=== PATIENT | male | born 1975 | race Caucasian/White ===

== ENCOUNTER → 2023-10-08 09:22 | Outpatient (BNVA) | payer SELFPAY | PROVIDERS: Visit Provider Physician Assistant Medical ==

== ENCOUNTER 2024-06-24 23:52 | Inpatient (IN) | payer MEDICAID, SELFPAY ==
--- NOTE | ~2024-06-24 | MR_ITS ---
EXAMINATION: MR WRIST WITHOUT CONTRAST, RIGHT CLINICAL INFORMATION: History of IVDU. Infection, history of remote scaphoid fracture. Evaluate for osteomyelitis. COMPARISON: Correlation made with CT wrist 06/25/2024, and plain films 06/25/2024. TECHNIQUE: MRI of the wrist was performed using routine sequences on a high-field scanner. The patient refused to complete the examination and contrast was not administered. Only a localizer sequence, coronal T1, and axial T1 sequences were able to be performed before the patient terminated the exam. FINDINGS: Essentially nondiagnostic exam, see above. Contrast was unable to be given patient noncompliance. Only coronal and axial T1 noncontrast sequences were obtained. The axial T1 images extremely motion degraded and essentially nondiagnostic. This was repeated with same result. This severely limits the sensitivity of the examination and renders it essentially nondiagnostic for determination of osteomyelitis. There is a nonunited mid waist scaphoid fracture, with diffusely hypointense T1 signal within the proximal fragment, consistent with AVN. There is fragmentation of the distal fragment cystic changes, marginal spurring and irregularity. There are likely posttraumatic arthritic changes in the STT joints. There is a T1 hypointense erosion involving the radial styloid process, with surrounding halo of T1 hypointense marrow signal, nonspecific. This could represent infection in the appropriate clinical setting. There are mild cystic changes in the volar aspect of the capitate, as well as the proximal pole. There is negative ulnar variance. No definite SLAC changes. There is degenerative arthritis, likely posttraumatic, of the radiocarpal joint. MR/MR wrist RT wo con IMPRESSION: 1. Essentially nondiagnostic examination as described above. Only motion degraded coronal T1 noncontrast and axial T1 noncontrast sequences were able to be obtained before the patient terminated the examination. 2. 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 The distal pole demonstrate mild fragmentation and irregularity with spurring. 3. There is a T1 hypointense subchondral cystic focus in the radial styloid, with mild surrounding halo of T1 hypointense marrow signal. This is nonspecific but could potentially represent infection. 4. 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 Electronically signed by: Hoang Louis MD 06/26/2024 08:45 AM EDT
--- NOTE | ~2024-06-24 | CT_ITS ---
CLINICAL HISTORY: ?IVDU infect. Hx of remote scaphoid fx Exam: CT of the right wrist with intravenous contrast. Comparison: Radiographs june 24, 2024. Findings: There is 5 mm of ulnar negative variance. No findings to suggest avascular necrosis of the lunate. Chronic fracture deformity of the scaphoid is identified. There is a diminutive and sclerotic appearance of the proximal scaphoid indicative of avascular necrosis. There is nonunion at the fracture line with several wall corticated bony fragments of the distal scaphoid. The largest bony fragment measures 12 x 9 mm in size. Other bony fragments are more diminutive. No aggressive periosteal reaction is identified. Moderate degenerative change of the STT joint and 1st carpometacarpal joint. No peripherally enhancing fluid collections are seen within the soft tissues to suggest abscess. There is hyperenhancement of the synovium along the radial aspect of the radiocarpal articulation with likely joint effusion. Alignment at the carpometacarpal joints is anatomic. Impression: 1. 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 2. No acute periosteal reaction or bony destructive change to suggest osteomyelitis. 3. Hyperenhancement of the synovium along the radial aspect of the radiocarpal articulation with likely joint effusion. Please note that MRI with intravenous contrast is considered the imaging modality of choice for the evaluation of septic arthritis and osteomyelitis. 4. No soft tissue abscess identified. This document has been electronically signed by: Pranay Fitch MD on 06/25/2024 06:08:44
--- NOTE | ~2024-06-24 | XR_ITS ---
CLINICAL HISTORY: swelling pain Three-view right wrist Comparison: None Findings: Sclerotic and fragmented appearance of the scaphoid suggestive of prior fracture healed in nonunion, possibly with avascular necrosis of the scaphoid proximal pole. Moderate degenerative changes at the radioscaphoid, triscaphe, and 1st carpometacarpal joints. Soft tissue swelling about the carpus. No dislocation. No acute fracture. IMPRESSION: 1. No acute findings. Posttraumatic changes of the scaphoid with secondary advanced degenerative changes. This document has been electronically signed by: John Marsh MD on 06/25/2024 00:52:33
--- NOTE | ~2024-06-24 | XR_ITS ---
CLINICAL HISTORY: swelling pain 3 view right hand Comparison: None Findings: Sclerotic and fragmented appearance of the scaphoid suggestive of prior fracture healed in nonunion, possibly with avascular necrosis of the scaphoid proximal pole. Moderate degenerative changes at the radioscaphoid, triscaphe, and 1st carpometacarpal joints. Soft tissue swelling about the carpus. No dislocation. No acute fracture. IMPRESSION: 1. No acute findings. Posttraumatic changes of the scaphoid with secondary advanced degenerative changes. This document has been electronically signed by: John Marsh MD on 06/25/2024 00:50:51
--- NOTE | ~2024-06-24 | US_ITS ---
EXAMINATION: Ultrasound nonvascular right wrist. CLINICAL INDICATION: Evaluate for septic arthritis. Significant dorsal and volar pain along the wrist. COMPARISON: Limited MRI right wrist 06/25/2024. TECHNIQUE: Limited ultrasound Imaging of right wrist and distal forearm was performed. FINDINGS: There is no anechoic fluid seen in the joint at this time. There is minimal fluid surrounding the dorsal superficial and deep extensor tendons, compressible essentially appears simple fluid. The tendons are grossly unremarkable. No abscess or soft tissue mass seen in and around the wrist joint or distal forearm. There is no drainable fluid or abscess seen. US/US Extremity Nonvas Comp JT RT IMPRESSION: No joint effusion. Minimal fluid surrounding the dorsal extensor tendons, not drainable fluid. The patient has AVN of scaphoid bone Results were conveyed to Dr. Lise Ferreira by phone at 8:54 AM. If patient has persistent pain in the right wrist pain a limited bone scan or a repeat MRI right wrist with sedation can be performed. Electronically signed by: Peterson Ballard MD 06/26/2024 10:08 AM EDT
[2024-06-25] VITALS (11 sets, daily range): BP systolic 108–142; BP diastolic 61–92; PULSE 59–95; RESP 16–20; TEMP 36.6–37.3; O2SAT 95–100; BMI 25.7; BMI 24.6
[2024-06-25] MEDS: oxyCODONE HCl Immed Release 5 MG TABLET PO (00:32)
[2024-06-25 01:01] LABS: Basophils Percent Auto 0.2 % (0-2); Eosinophils Percent Auto 0.1 % (0-4); Imm Gran Abs Auto 0.04 X10*3/uL (0.00-0.03); Imm Gran Pct Auto 0.3 % (0.0-0.4); MANUAL DIFF FLAG SCAN; Mean Platelet Volume 9.7 fL (9.4-12.4); PLT CLUMP 1; SCAN SMEAR FLAG 1
[2024-06-25 01:03] LABS: Hematocrit 38.1 % (42.0-52.0); Hemoglobin 13.5 g/dl (14.0-18.0); Lymphocytes Absolute Auto 1.8 X10*3/uL (1.2-4.9); Lymphocytes Percent Auto 13.5 % (20-40); Mean Corpuscular HGB Conc 35.4 g/dl (31.0-36.0); Mean Corpuscular Hemoglobin 31.2 pg (27.0-33.0); Monocytes Absolute Auto 1.4 X10*3/uL (0.1-1.2); Monocytes Percent Auto 10.5 % (2-11); Neutrophils Absolute Auto 10.3 x10*3/uL (2.0-8.3); Neutrophils Percent Auto 75.4 % (45-73); Red Blood Count 4.33 X10*6/uL (4.60-5.80); Red Cell Distribution Width 12.6 % (11.0-16.0)
[2024-06-25 01:04] LABS: Platelet Count 282 X10*3/uL (160-400); White Blood Count 13.7 X10*3/uL (4.8-10.8)
[2024-06-25 01:19] LABS: SLIDE REVIEW VERIFIED
--- NOTE | 2024-06-25 01:35 | ED_ITS ---
HPI - Extremity Problem General Chief complaint: Extremity Injury, Upper Stated complaint: THROBBING PAIN IN RT HAND Time Seen by Provider: 06/25/24 01:35 History of Present Illness ED Provider: Berkley VILLATORO Narrative: The patient is a 48-year-old male who presents with a complaint of acute severe right wrist pain that started at 22:30 earlier this evening. He says that he had been asleep in preparation for going to work for an overnight shift. 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 He says that he has a history of remote fracture of the right wrist but says he has had no a chronic problems with the wrist. He also says that he has a remote history of IV heroin use but has not used for several years. He says that he woke up with acute severe pain in the right wrist. He feels that there is swelling in the wrist. He says that the pain is relieved only by lifting his wrist above his head. He says any time he brings his wrist down the pain becomes unbearable. He says that even when he is holding his wrist above his head the pain is still severe and he has been sweaty because of the degree of pain. No fever, sweats, chills. He has never had an episode like this before. The patient later admitted that he has been using IV drugs recently and that in fact he injected IV drugs in a vein at the right wrist 2 days ago in the location of his severe pain Related Data Home Medications ?Medication ?Instructions ?Recorded ?Confirmed No Known Home Meds 06/25/24 06/25/24 Allergies Allergy/AdvReac Type Severity Reaction Status Date / Time No Known Allergies Allergy Verified 06/25/24 00:04 Review of Systems 2 Review of Systems: Yes all other systems are reviewed and are negative [facility] Past Medical History Medical History Polysubstance use disorder Social History Social History Alcohol intake: current Alcohol intake frequency: holidays/special occasions only Smoked in Last 30 Days: Yes Use of substances other than those prescribed or required for medical reasons: No Advance Directives: No Advance Directives Information Provided: Yes Do you have a plan to hurt others: No Plan Physical Exam 2 Vital Signs: Vital Signs: Last Vital Signs Temp 98.5 F 06/25/24 05:09 Pulse 72 06/25/24 08:10 Resp 16 06/25/24 08:10 BP 108/62 06/25/24 08:10 Pulse Ox 99 06/25/24 08:10 O2 Del Method Room Air 06/25/24 08:10 BMI result Body Mass Index 25.7 Const: Other: The patient is a 48-year-old male who was awake and alert and looks uncomfortable. He was holding his right arm so that his hand and wrist were above his head. He was diaphoretic. HEENT: Other: Face is symmetrical. The patient has multiple dental caries. Mucous membranes moist. Eyes: General: appearance normal, both eyes and all related structures Neck: Neck: Yes full ROM and Yes no lymphadenopathy Resp: Effort & Inspection: normal respiratory effort Auscultation: clear to auscultation bilaterally Cardio: Rate: regular rate Rhythm: regular rhythm Heart sounds: S1 normal heart sound present and S2 normal heart sound present GI: Other: Abdomen is soft and nontender Skin: Other: The patient's head was diaphoretic. The skin of the right wrist showed a small amount of possible swelling on the dorsum of the radial side of the wrist. The patient was quite tender in his region. No definite fluctuance. Neuro: Other: The patient is awake and alert with a normal mental status. Cranial nerves are grossly intact. He seems to have symmetrical tone in his extremities. He seems grossly neurologically intact. Extrem: Other: No peripheral edema Medications Administered Generic Name Dose Route Start Last Admin Trade Name Freq PRN Reason Stop Dose Admin Morphine Sulfate 4 mg 06/25/24 04:36 06/25/24 07:22 Morphine Sulfate 4 Mg/Ml Cartridge IVPUSH 4 mg Q4H PRN Administration Pain, Severe (Pain Scale 7-10) Protocol Sodium Chloride 3 ml 06/25/24 08:00 06/25/24 07:24 0.9 % Sodium Chloride Flush 3 Ml Syringe IVFLUSH 3 ml QSHIFT MARK Administration Discontinued Medications Generic Name Dose Route Start Last Admin Trade Name Freq PRN Reason Stop Dose Admin Diazepam 5 mg 06/25/24 04:57 06/25/24 05:12 Diazepam 10 Mg/2 Ml Cartridge IVPUSH 06/25/24 04:58 5 mg STAT STA Administration Hydromorphone HCl 0.5 mg 06/25/24 03:42 06/25/24 03:55 Hydromorphone Hcl 0.5 Mg/0.5 Ml Syringe IVPUSH 06/25/24 03:43 0.5 mg ONCE ONE Administration Protocol Hydromorphone HCl 1 mg 06/25/24 04:25 06/25/24 04:31 Hydromorphone Hcl 1 Mg/Ml Syringe IVPUSH 06/25/24 04:26 1 mg ONCE ONE Administration Protocol Hydromorphone HCl 1 mg 06/25/24 04:55 06/25/24 05:19 Hydromorphone Hcl 1 Mg/Ml Syringe IVPUSH 06/25/24 04:56 Not Given ONCE ONE Protocol Hydromorphone HCl 1 mg 06/25/24 07:49 06/25/24 08:07 Hydromorphone Hcl 1 Mg/Ml Syringe IVPUSH 06/25/24 07:50 1 mg ONCE ONE Administration Protocol Piperacillin Sod/Tazobactam 100 mls @ 200 mls/hr 06/25/24 04:14 06/25/24 05:57 Sod 4.5 gm/ Sodium Chloride IV 06/25/24 04:43 Infused ONCE ONE Infusion Vancomycin HCl 2,000 mg in 500 mls @ 250 mls/hr 06/25/24 04:15 06/25/24 04:57 Vancomycin/Ns IV 06/25/24 06:14 250 mls/hr ONCE ONE Administration Lactated Ringer's 1,000 mls @ 999 mls/hr 06/25/24 05:00 06/25/24 08:10 Lr IV 06/25/24 06:00 Infused .Q1H1M MARK Infusion Iohexol 85 ml 06/25/24 05:38 06/25/24 05:40 Iohexol 350 Mg/Ml 100 Ml Infus..Btl IV 06/25/24 05:39 85 ml ONCE ONE Administration Ketorolac Tromethamine 10 mg 06/25/24 03:42 06/25/24 03:55 Ketorolac Tromethamine 15 Mg/Ml Vial IVPUSH 06/25/24 03:43 10 mg ONCE ONE Administration Morphine Sulfate 4 mg 06/25/24 01:56 05/07/25 03:07 Morphine Sulfate 4 Mg/Ml Cartridge IVPUSH 06/25/24 01:57 4 mg ONCE ONE Administration Protocol Oxycodone HCl 5 mg 06/25/24 00:18 06/25/24 00:32 Oxycodone Hcl Immed Release 5 Mg Tablet PO 06/25/24 00:19 5 mg ONCE ONE Administration Medical Decision Making Medical Decision Making [facility] Narrative: The patient is a 48-year-old male who presented with a strange presentation of acute wrist pain. He was also diaphoretic. He was holding his right hand above his head in a position of comfort. At 1st the patient admitted to being a remote IV drug user but denied recent IV drug use. Later he admitted to having used IV drugs recently including injecting himself in the right wrist near the site of his pain. On exam there is no significant erythema to the skin overlying the area of pain. There is a small area of soft tissue swelling uncertain significance. I am not able to put the right wrist through a very reassuring range of motion. The patient has a white count of 13.7 with 75.4% neutrophils. Other inflammatory markers are not markedly abnormal. Given the history of IV drug use I would be concerned about an infectious process as the cause of the patient's presentation to the emergency room this morning. The patient was therefore started on Zosyn and vancomycin. We will obtain a CT scan of the wrist. The patient will be admitted to the hospitalist service with a an orthopedic consult. I contacted the on-call orthopedic physician ward assistant. Lab Data 06/25/24 00:56 06/25/24 03:02 Labs: Lab Results 06/25/24 06/25/24 06/25/24 Range/Units 00:56 03:01 03:02 WBC 13.7 H (4.8-10.8) X10*3/uL RBC 4.33 L (4.60-5.80) X10*6/uL Hgb 13.5 L (14.0-18.0) g/dl Hct 38.1 L (42.0-52.0) % MCV 88.0 (80.0-98.0) fL MCH 31.2 (27.0-33.0) pg MCHC 35.4 (31.0-36.0) g/dl RDW 12.6 (11.0-16.0) % Plt Count 282 (160-400) X10*3/uL MPV 9.7 (9.4-12.4) fL Immature Gran % (Auto) 0.3 (0.0-0.4) % Neut % (Auto) 75.4 H (45-73) % Lymph % (Auto) 13.5 L (20-40) % Benzie % (Auto) 10.5 (2-11) % Eos % (Auto) 0.1 (0-4) % Baso % (Auto) 0.2 (0-2) % Lymph # (Auto) 1.8 (1.2-4.9) X10*3/uL Benzie # (Auto) 1.4 H (0.1-1.2) X10*3/uL Eos # (Auto) 0.0 (0.0-0.4) X10*3/uL Baso # (Auto) 0.0 (0.0-0.2) X10*3/uL Abs Immat Gran (auto) 0.04 H (0.00-0.03) X10*3/uL Absolute Neuts (auto) 10.3 H (2.0-8.3) x10*3/uL Absolute Nucleated RBC 0.000 (0.0-0.012) X10*3/uL Nucleated RBC % (auto) 0.0 (0.0-0.2) /100WBC Smear Tech's Comments VERIFIED ESR 17 H (0-15) MM/HR Sodium 136 (135-145) mmol/L Potassium 3.8 (3.3-5.1) mmol/L Chloride 101 (96-108) mmol/L Carbon Dioxide 23 (22-29) mmol/L Anion Gap 16 (12-20) BUN 11 (9-16) mg/dL Creatinine 0.70 (0.5-1.4) mg/dL Estim Creat Clear Calc 153.3 Estimated GFR > 60 Random Glucose 102 (60-115) mg/dL Lactic Acid 1.4 (0.5-2.0) mmol/L Uric Acid 6.1 (3.4-7.0) mg/dL Calcium 9.5 (8.4-10.2) mg/dL Magnesium 1.8 (1.6-2.6) mg/dL Total Bilirubin 0.7 (0.0-1.0) mg/dL Direct Bilirubin 0.3 (0.0-0.5) mg/dL AST 37 (5-37) U/L ALT 32 (0-40) U/L Alkaline Phosphatase 78 (39-117) U/L Total Creatine Kinase 136 (38-174) U/L C-Reactive Protein 1.12 H (< or = 0.50) mg/dL Total Protein 8.1 H (6.5-8.0) g/dL Albumin 4.6 (3.5-5.0) g/dL Procalcitonin 0.05 ng/mL Urine Color Dark Yellow Urine Appearance Clear Urine pH 5.5 (5.0-9.0) Ur Specific Cushman 1.025 (1.005-1.025) Urine Protein Negative (Neg-Trace) mg/dL Urine Glucose (UA) Negative (Negative) mg/dL Urine Ketones 15 (Negative) mg/dL Urine Blood Negative (Negative) Urine Nitrite Negative (Negative) Ur Leukocyte Esterase Negative (Negative) Urine Opiates Screen POSITIVE H (Not Detect) Ur Buprenorphine Scrn Not Detected (Not Detect) ng/mL Ur Oxycodone Screen Positive H (Not Detect) ng/mL Urine Methadone Screen Not Detected (Not Detect) ng/mL Urine Fentanyl Screen POSITIVE H (Not Detect) Ur Barbiturates Screen Not Detected (Not Detect) Ur Phencyclidine Scrn Not Detected (Not Detect) Ur Amphetamines Screen Not Detected (Not Detect) U Benzodiazepines Scrn Not Detected (Not Detect) Urine Cocaine Screen Not Detected (Not Detect) U Marijuana (THC) Screen Not Detected (Not Detect) Discharge Plan Discharge Clinical Impression: Infection of left wrist, Active intravenous drug use Patient Disposition: Admitted As Inpatient
--- NOTE | 2024-06-25 01:52 | ECG_ITS ---
Test Reason : PAIN Blood Pressure : */* mmHG Vent. Rate : 74 BPM Atrial Rate : 74 BPM P-R Int : 168 ms QRS Dur : 84 ms QT Int : 404 ms P-R-T Axes : 47 68 50 degrees QTcB Int : 448 ms Normal sinus rhythm with sinus arrhythmia Normal ECG No previous ECGs available Referred By: Scott Gooden Electronically Signed By: SHARIFA CAMPBELL
[2024-06-25] MEDS: Morphine Sulfate 4 MG/ML CARTRIDGE IVPUSH ×3 (03:07→19:31)
[2024-06-25 03:18] LABS: Appearance Urine Clear; Color Urine Dark Yellow; Glucose Urine UA Negative (Negative); Leukocyte Esterase Urine Negative (Negative); Nitrite Urine Negative (Negative); PH 5.5 (5.0-9.0); Specific Gravity - Urine 1.025 (1.005-1.025); Urine Blood Negative (Negative); Urine Ketones 15 mg/dL (Negative); Urine Protein Negative (Neg-Trace)
[2024-06-25 03:27] LABS: Lactic Acid 1.4 mmol/L (0.5-2.0)
[2024-06-25 03:29] LABS: Amphetamine Screen Urine Not Detected (Not Detect); Barbiturates, Urine Not Detected (Not Detect); Benzodiazepines Screen Urine Not Detected (Not Detect); Buprenorphine Scr Not Detected (Not Detect); Cannabinoid Screen Urine Not Detected (Not Detect); Cocaine Screen Urine Not Detected (Not Detect); Fentanyl, urine POSITIVE (Not Detect); Methadone Screen, Urine Not Detected (Not Detect); Opiate Screen Urine POSITIVE (Not Detect); Oxycodone Screen Urine Positive (Not Detect); Phencyclidine Screen Urine Not Detected (Not Detect)
[2024-06-25 03:31] LABS: Alanine Aminotransferase 32 U/L (0-40); Albumin Level 4.6 g/dL (3.5-5.0); Anion Gap 16 (12-20); Aspartate Amino Transferase 37 U/L (5-37); Bilirubin Direct 0.3 mg/dL (0.0-0.5); Bilirubin Total 0.7 mg/dL (0.0-1.0); Blood Urea Nitrogen 11 mg/dL (9-16); C Reactive Protein 1.12 mg/dL (< or = 0.50); Calcium 9.5 mg/dL (8.4-10.2); Carbon Dioxide 23 mmol/L (22-29); Chloride 101 mmol/L (96-108); Creatinine Clr Calc Pharmacy 153.3; Estimated Glomerular Filt Rate > 60; Glucose Random 102 mg/dL (60-115); Magnesium 1.8 mg/dL (1.6-2.6); Potassium 3.8 mmol/L (3.3-5.1); Sodium 136 mmol/L (135-145); Total Protein 8.1 g/dL (6.5-8.0); Uric Acid 6.1 mg/dL (3.4-7.0)
[2024-06-25 03:44] LABS: Erythrocyte Sedimentation Rate 17 MM/HR (0-15)
[2024-06-25 03:52] LABS: Procalcitonin 0.05 ng/mL
[2024-06-25] MEDS: Ketorolac Tromethamine 15 MG/ML VIAL 10 MG IVPUSH (03:55)
[2024-06-25] MEDS: HYDROmorphone HCl 0.5 MG/0.5 ML SYRINGE IVPUSH (03:55)
[2024-06-25 04:17] LABS: Alkaline Phosphatase 78 U/L (39-117)
[2024-06-25] MEDS: HYDROmorphone HCl 1 MG/ML SYRINGE IVPUSH ×6 (04:31→21:43)
--- NOTE | 2024-06-25 04:38 | PM.IMHP ---
History of Present Illness Date of Service: 06/25/24 Chief Complaint: Wrist pain This has a 48-year-old male with pertinent history of IV opioid use disorder who presents to the emergency department for evaluation of right wrist pain. Patient initially stated that he had a cut about a week ago from working on a car. Then later admitted that he injected IV heroin at the site of pain and swelling. Patient states he woke up with throbbing right wrist pain and noticed redness, swelling. The pain has been persistent and without any relieving factors. Does endorse a remote fracture of the right wrist but states that until 1 day prior to presentation he had no problems with his wrist. He is unable to move his wrist on the day of presentation due to pain and swelling. Denies fever, chills, chest pain, palpitations, abdominal pain, changes in urinary or bowel habits. In the emergency department, UDS positive for fentanyl. Leukocytosis 13.7 and imaging with avascular necrosis of scaphoid. Review of Systems Constitutional: Constitutional: Reports no additional constitutional complaints Cardiovascular: Cardiovascular: Reports no additional cardiovascular complaints Respiratory: Respiratory: Reports no additional respiratory complaints Gastrointestinal: Gastrointestinal: Reports no additional gastrointestinal complaints Genitourinary: Genitourinary: Reports no additional male genitourinary complaints Musculoskeletal: Musculoskeletal: Reports arthralgias and Reports joint swelling [facility] Medical History Polysubstance use disorder Pertinent family history: No family history of early CAD Social History Alcohol intake: current Alcohol intake frequency: holidays/special occasions only Smoked in Last 30 Days: Yes Use of substances other than those prescribed or required for medical reasons: No Advance Directives: No Advance Directives Information Provided: Yes Do you have a plan to hurt others: No Plan Meds Allergies Allergy/AdvReac Type Severity Reaction Status Date / Time No Known Allergies Allergy Verified 06/25/24 00:04 Active Medications: Current Medications Piperacillin Sod/Tazobactam (Sod 4.5 gm/ Sodium Chloride) 100 mls @ 200 mls/hr IV ONCE ONE Stop: 06/25/24 04:43 Vancomycin HCl (Vancomycin/Ns) 2,000 mg in 500 mls @ 250 mls/hr IV ONCE ONE Stop: 06/25/24 06:14 Pharmacy Consult (Consult Rx Vancomycin Dosing) 1 each MISCELLANE DAILY PRN PRN Reason: Consult order Physical Exam Vital Signs and Narrative: Vital Signs: Last Vital Signs Temp 97.8 F 06/25/24 00:00 Pulse 87 06/25/24 00:00 Resp 18 06/25/24 04:31 BP 141/78 H 06/25/24 00:00 Pulse Ox 99 06/25/24 00:00 O2 Del Method Room Air 06/25/24 00:00 BMI result Body Mass Index 25.7 Middle-aged male lying in bed in no distress Neck supple, no JVD Regular rate and rhythm, S1-S2 heard Regular breath sounds bilaterally, no wheezing or crackles appreciated Abdomen soft nontender, no guarding, no rigidity Patient is awake, alert and oriented to self, place, time and person ; no focal motor deficit Psych: Normal mood Right wrist with swelling, erythema, tenderness near scaphoid bone ; limited range of motion due to pain Results Labs 06/25/24 00:56 06/25/24 03:02 Labs: Laboratory Results - last 24 hr 06/25/24 06/25/24 06/25/24 00:56 03:01 03:02 MCV 88.0 MCH 31.2 MCHC 35.4 RDW 12.6 Plt Count 282 MPV 9.7 Immature Gran % (Auto) 0.3 Neut % (Auto) 75.4 H Lymph % (Auto) 13.5 L [place] % (Auto) 10.5 Eos % (Auto) 0.1 Baso % (Auto) 0.2 Lymph # (Auto) 1.8 [place] # (Auto) 1.4 H Eos # (Auto) 0.0 Baso # (Auto) 0.0 Abs Immat Gran (auto) 0.04 H Absolute Neuts (auto) 10.3 H Absolute Nucleated RBC 0.000 Nucleated RBC % (auto) 0.0 Smear Tech's Comments VERIFIED ESR 17 H Anion Gap 16 Estim Creat Clear Calc 153.3 Estimated GFR > 60 Random Glucose 102 Lactic Acid 1.4 Uric Acid 6.1 Calcium 9.5 Magnesium 1.8 Total Bilirubin 0.7 Direct Bilirubin 0.3 AST 37 ALT 32 Alkaline Phosphatase 78 Total Creatine Kinase 136 C-Reactive Protein 1.12 H Total Protein 8.1 H Albumin 4.6 Procalcitonin 0.05 Urine Color Dark Yellow Urine Appearance Clear Urine pH 5.5 Ur Specific Stanton 1.025 Urine Protein Negative Urine Glucose (UA) Negative Urine Ketones 15 Urine Blood Negative Urine Nitrite Negative Ur Leukocyte Esterase Negative Urine Opiates Screen POSITIVE H Ur Buprenorphine Scrn Not Detected Ur Oxycodone Screen Positive H Urine Methadone Screen Not Detected Urine Fentanyl Screen POSITIVE H Ur Barbiturates Screen Not Detected Ur Phencyclidine Scrn Not Detected Ur Amphetamines Screen Not Detected U Benzodiazepines Scrn Not Detected Urine Cocaine Screen Not Detected U Marijuana (THC) Screen Not Detected Assessment and Plan (1) Avascular necrosis of scaphoid: Status: Acute Plan This has a 48-year-old male with pertinent history of IV opioid use disorder who presents to the emergency department for evaluation of right wrist pain. #. Avascular necrosis of scaphoid: Will admit patient for intractable wrist pain. Consulted Orthopedic surgery, appreciate assistance. Does have leukocytosis. Initiating empiric IV vancomycin in a patient with IV drug use. Imaging with hyperenhancement of synovium with joint effusion. Obtaining MRI to rule out septic arthritis and osteomyelitis. #. Polysubstance IV drug use disorder: Monitor for withdrawal. Consulting Addiction Team DVT prophylaxis: Hold Lovenox until orthopedic evaluation Full code Admit as inpatient and will require two night minimum hospital stay for management of intractable pain and avascular necrosis, IV antibiotics (as above), which is not possible in a lesser acute setting. Orthopedic surgery consult pending Quality Stroke Does the patient have a stroke diagnosis?: No VTE Prior VTE?: No VTE Risk Level:: Medical - low VTE Device Contraindication: Treatment Not Indicated VTE Drug Contraindication: Treatment Not Indicated
[2024-06-25] MEDS: vancomycin/NS 2,000 MG/500 ML PLAST..BAG 250 MG IV (04:57)
[2024-06-25] MEDS: Piperacillin Sodium/Tazobactam 4.5 GM in 0.9 % Sodium Chloride 100 ML IV (04:57)
[2024-06-25] MEDS: diazePAM 10 MG/2 ML CARTRIDGE 5 MG IVPUSH ×2 (05:12→19:46)
[2024-06-25] MEDS: Lactated Ringers 1,000 ML 999 ML IV (05:13)
[2024-06-25] MEDS: iohexoL 350 MG/ML 100 ML INFUS..BTL 85 ML IV (05:40)
--- NOTE | 2024-06-25 06:05 | PC.NURSE ---
For admission documentation: PT MARYBeau from home with complaints of right wrist swelling. Initially?pt stated he sustained a cut while working?on a car 1 week ago which healed normally, but then today he woke up in 10/10 throbbing pain. However after attempting to draw labs pt noted hx of IVDU. WEBB was ordered and pt was?+ for fentanyl? and opiates or admitted to using heroin via IV, and the injection site was near the swollen area. WBC- 13.7 Ultrasound guided line placed in pt L ARM. PT a/ox4, independent and can make needs known.?
--- NOTE | 2024-06-25 07:07 | PC.NURSE ---
pt reminded multiple times to not bend is arm as it is causing a delay in antibiotic infusion and Fluids.
[2024-06-25] MEDS: 0.9 % Sodium Chloride Flush 3 ML SYRINGE IVFLUSH ×3 (07:24→19:46)
--- NOTE | 2024-06-25 07:49 | PC.NURSE ---
Pt is alert and oriented. States pain 9/10 to right wrist and keeping elevated as throbbing worsens with arm dependent. Pt given PRN Morphine as charted. VSS. Ate a small amount of breakfast. Aware of plan to admit. U/S guided IV to left arm flushing without difficulty, no redness to site. Vanco still infusing d/t arm bending, positioned on pillow and pt made aware to keep arm straight. Right wrist with some swelling noted. +CMS.
--- NOTE | 2024-06-25 07:52 | PHA.PROG ---
Admission Date/Time: June 25, 2024 04:33 Indication: bone and joint Weight in k.718 kg Adjusted body weight in Kg: [place] body weight in Kg: Obesity Dosing Indication % IBW: Serum Creatinine - Last 168 Hours 06/25/24 03:02 Creatinine 0.70 Estimated CrCl and GFR - Last 168 Hours 06/25/24 03:02 Estim Creat Clear Calc 153.3 Estimated GFR > 60 Vancomycin Loading Dose: 2000mg x 1 Current Vancomycin Dosing Regimen: 1250mg Q12H Vancomycin Monitoring using AUC goal of 400 - 600 range with trough as surrogate marker: 462 mg/L Date and Time for next Vancomycin Level to be drawn: 06/26 @1500 Pharmacist Comments on Vancomycin Plan: predicted trough of 13.8 mg/L Vancomycin dosing will take advantage of [employer]Plan as a clinical decision support tool that uses Bayesian modeling to calculate individual patient's pharmacokinetic parameters and forecast the patient's drug concentration time course with the target goal AUC 24 range of 400 - 600 mg/L/hr.
--- NOTE | 2024-06-25 07:57 | PC.NURSE ---
MRI screening form completed/faxed
--- NOTE | 2024-06-25 07:57 | PC.NURSE ---
Pt reports no pain relief s/p Morphine, called ED provider in room, although admitted. Order for Dilaudid 1mg ordered by Dr Gooden, Dr Esquivel made aware and okay to give at this time
--- NOTE | 2024-06-25 08:11 | PC.NURSE ---
Ortho at bedside Dilaudid given
--- NOTE | 2024-06-25 08:26 | PHA.MEDREC ---
Pharmacy Consult ? Medication Reconciliation Pharmacy has completed the medication reconciliation. Spoke with patient, confirmed he is on no medications.
--- NOTE | 2024-06-25 08:43 | PM.CNOR ---
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 Today, the patient reports that his wrist is very swollen, but denies any redness or heat Denies discharge Denies numbness or tingling No other acute complaints or concerns Review of Systems Review of Systems: Yes all other systems are reviewed and are negative PMFSH Past Medical History Medical History Polysubstance use disorder Social History Social History Alcohol intake: current Alcohol intake frequency: holidays/special occasions only Smoked in Last 30 Days: Yes Use of substances other than those prescribed or required for medical reasons: No Advance Directives: No Advance Directives Information Provided: Yes Do you have a plan to hurt others: No Plan Meds Allergies Allergy/AdvReac Type Severity Reaction Status Date / Time No Known Allergies Allergy Verified 06/25/24 00:04 Active Medications: Current Medications Acetaminophen (Acetaminophen 325 Mg Tablet) 650 mg PO Q6H PRN PRN Reason: Pain, Mild 1-3,fever,headache Calcium Carbonate (Calcium Carbonate 750 Mg Tab.Chew) 750 mg PO Q4H PRN PRN Reason: Heartburn Vancomycin HCl 1,250 mg/ (Sodium Chloride) 250 mls @ 166.667 mls/hr IV Q12H MARK Magnesium Hydroxide (Milk Of Magnesia 30 Ml Oral.Susp) 30 ml PO DAILY PRN PRN Reason: Constipation Melatonin (Melatonin 3 Mg Tablet) 6 mg PO BEDTIME PRN PRN Reason: Insomnia Morphine Sulfate (Morphine Sulfate 4 Mg/Ml Cartridge) 4 mg IVPUSH Q4H PRN; Protocol PRN Reason: Pain, Severe (Pain Scale 7-10) Last Admin: 06/25/24 07:22 Dose: 4 mg Ondansetron HCl (Ondansetron Hcl 4 Mg/2 Ml Vial) 4 mg IVPUSH Q8H PRN PRN Reason: Nausea and Vomiting Pharmacy Consult (Consult Rx Vancomycin Dosing) 1 each MISCELLANE DAILY PRN PRN Reason: Consult order Sodium Chloride (0.9 % Sodium Chloride Flush 3 Ml Syringe) 3 ml IVFLUSH QSHIFT [facility] Last Admin: 06/25/24 07:24 Dose: 3 ml Home Medications ?Medication ?Instructions ?Recorded ?Confirmed ?Last Taken ?Type No Known Home Meds 06/25/24 06/25/24 Unknown History Physical Exam Vital Signs: Vital Signs: Last Vital Signs Temp 98.6 F 06/25/24 08:28 Pulse 72 06/25/24 08:10 Resp 16 06/25/24 08:10 BP 108/62 06/25/24 08:10 Pulse Ox 99 06/25/24 08:10 O2 Del Method Room Air 06/25/24 08:10 BMI result Body Mass Index 25.7 Extrem: Other: Patient is alert, oriented, and in no acute distress. Neuro: Normal sensation of the tips of all digits of the right hand at this time Vascular: Cap refill brisk Pain: Significant tenderness to palpation about the entire right wrist Very significant pain with axial loading of the right wrist ROM: Patient is able to get close to making a closed fist with the right hand All range of motion of the right wrist extremely painful Skin: No lacerations or abrasions. General: There is significant edema over the 1st dorsal compartment and anatomical snuffbox of the right wrist No ecchymosis, erythema, or other evidence of infection. Psych: Appears grossly normal Affect normal Attitude cooperative Results Labs 06/25/24 00:56 06/25/24 03:02 Labs: Abnormal lab results 06/25/24 06/25/24 06/25/24 Range/Units 00:56 03:01 03:02 WBC 13.7 H (4.8-10.8) X10*3/uL RBC 4.33 L (4.60-5.80) X10*6/uL Hgb 13.5 L (14.0-18.0) g/dl Hct 38.1 L (42.0-52.0) % Neut % (Auto) 75.4 H (45-73) % Lymph % (Auto) 13.5 L (20-40) % [place] # (Auto) 1.4 H (0.1-1.2) X10*3/uL Abs Immat Gran (auto) 0.04 H (0.00-0.03) X10*3/uL Absolute Neuts (auto) 10.3 H (2.0-8.3) x10*3/uL ESR 17 H (0-15) MM/HR C-Reactive Protein 1.12 H (< or = 0.50) mg/dL Total Protein 8.1 H (6.5-8.0) g/dL Urine Opiates Screen POSITIVE H (Not Detect) Ur Oxycodone Screen Positive H (Not Detect) ng/mL Urine Fentanyl Screen POSITIVE H (Not Detect) H & H 06/25/24 Range/Units 00:56 Hgb 13.5 L (14.0-18.0) g/dl Hct 38.1 L (42.0-52.0) % All other labs normal. Diagnostic results Wrist/Hand x-ray: report reviewed and image reviewed Wrist/Hand CT: report reviewed and image reviewed Assessment and Plan (1) Avascular necrosis of scaphoid: Status: Acute (2) Active intravenous drug use: Status: Acute Plan 1. Acute onset severe right wrist pain 2. 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 I discussed both operative and nonoperative treatment options. The patient would like to proceed with surgery. The risks and benefits of operative treatment were discussed with the patient and the patient wishes to proceed with surgery. These risks include, but are not limited to, risk of damage to blood vessels, nerves, tendons, infection, recurrence, incomplete relief of preoperative symptoms, persistent pain, possible need for further surgery, and the risks associated with regional blocks and/or anesthesia. Tentative Plan is to take the patient to the operating room at some point tomorrow, 06/26/2024 for the following procedures: 1. I and D of right wrist Continue pain management and all other recommendations per Medicine Orthopedics will continue to follow Procedures Date of Service Date of Service: 06/25/24
--- NOTE | 2024-06-25 08:53 | PC.NURSE ---
Pt initially stating no relief s/p Dilaudid, now pt given cool pack and assisted to lower arm and positioned on pillow. Eyes closed at this time, breathing even and unlabored.
--- NOTE | 2024-06-25 10:28 | HO.ADDICT_ITS ---
History of Present Illness Date of Service: 06/25/2024 Chief Complaint: wrist pain Reason for Consult: history of OUD Sources of Information: patient interviewed and chart reviewed HPI Narrative: Patient is a 48 year old male medically admitted to [facility] with avascular necrosis of the scaphoid. Consult requested as patient reported recent IVDU. Patient seen in room 18 of main ED. He is awake, alert, pleasant and engaged in interview. He reports recent recurrence of use after 6 years in sustained remission from opiate use He states he used on 2 separate occasions, most recently being 2 days ago. When asked about withdrawal, he replied, I have only used 2 times, I'm not going to be sick He reports pain in his wrist, otherwise denies nausea, chills, anxiety, etc. No sx noted during interview. 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 Highest dose 70mg, tapered off 6 years ago. Denies any history of overdose Denies any alcohol, cocaine or benzo use Reviewed recovery supports--he states he attends meetings and has a sponsor that he is close with He identifies his job as a strong recovery support. Discussed IVDU--he reports using new syringes both times and cleaning the area well. Does not wish to discuss what led to recent use. Review of Systems Constitutional: Reports as per HPI and Reports no additional constitutional complaints Diagnostics Vital Signs (24Hr): Vital Signs - 24 hr 06/25/24 00:00 06/25/24 03:07 06/25/24 04:31 Temperature 97.8 F Pulse Rate 87 Respiratory Rate 18 18 18 Blood Pressure 141/78 H Pulse Oximetry 99 Oxygen Delivery Method Room Air 06/25/24 05:09 06/25/24 08:10 06/25/24 08:28 Temperature 98.5 F 98.6 F Pulse Rate 69 72 Respiratory Rate 18 16 Blood Pressure 111/61 108/62 Pulse Oximetry 98 99 Oxygen Delivery Method Room Air Room Air BMI result Body Mass Index 25.7 Labs 06/25/24 00:56 06/25/24 03:02 Labs: Laboratory Results - last 48 hr 06/25/24 06/25/24 06/25/24 00:56 03:01 03:02 WBC 13.7 H RBC 4.33 L Hgb 13.5 L Hct 38.1 L MCV 88.0 MCH 31.2 MCHC 35.4 RDW 12.6 Plt Count 282 MPV 9.7 Immature Gran % (Auto) 0.3 Neut % (Auto) 75.4 H Lymph % (Auto) 13.5 L [place] % (Auto) 10.5 Eos % (Auto) 0.1 Baso % (Auto) 0.2 Lymph # (Auto) 1.8 [place] # (Auto) 1.4 H Eos # (Auto) 0.0 Baso # (Auto) 0.0 Abs Immat Gran (auto) 0.04 H Absolute Neuts (auto) 10.3 H Absolute Nucleated RBC 0.000 Nucleated RBC % (auto) 0.0 Smear Tech's Comments VERIFIED ESR 17 H Sodium 136 Potassium 3.8 Chloride 101 Carbon Dioxide 23 Anion Gap 16 BUN 11 Creatinine 0.70 Estim Creat Clear Calc 153.3 Estimated GFR > 60 Random Glucose 102 Lactic Acid 1.4 Uric Acid 6.1 Calcium 9.5 Magnesium 1.8 Total Bilirubin 0.7 Direct Bilirubin 0.3 AST 37 ALT 32 Alkaline Phosphatase 78 Total Creatine Kinase 136 C-Reactive Protein 1.12 H Total Protein 8.1 H Albumin 4.6 Procalcitonin 0.05 Urine Color Dark Yellow Urine Appearance Clear Urine pH 5.5 Ur Specific [place] 1.025 Urine Protein Negative Urine Glucose (UA) Negative Urine Ketones 15 Urine Blood Negative Urine Nitrite Negative Ur Leukocyte Esterase Negative Urine Opiates Screen POSITIVE H Ur Buprenorphine Scrn Not Detected Ur Oxycodone Screen Positive H Urine Methadone Screen Not Detected Urine Fentanyl Screen POSITIVE H Ur Barbiturates Screen Not Detected Ur Phencyclidine Scrn Not Detected Ur Amphetamines Screen Not Detected U Benzodiazepines Scrn Not Detected Urine Cocaine Screen Not Detected U Marijuana (THC) Screen Not Detected Mental Status Exam Mental Status Exam Level of Consciousness: Awake, Appropriate and Alert Patient Behavior: Appropriate and Guarded Affect Description: Calm Speech Pattern: Clear Thought Process: Intact Thought Content: positive for Intact Judgement: Good Medications Medications Current Medications Acetaminophen (Acetaminophen 325 Mg Tablet) 650 mg PO Q6H PRN PRN Reason: Pain, Mild 1-3,fever,headache Calcium Carbonate (Calcium Carbonate 750 Mg Tab.Chew) 750 mg PO Q4H PRN PRN Reason: Heartburn Vancomycin HCl 1,250 mg/ (Sodium Chloride) 250 mls @ 166.667 mls/hr IV Q12H MARK Magnesium Hydroxide (Milk Of Magnesia 30 Ml Oral.Susp) 30 ml PO DAILY PRN PRN Reason: Constipation Melatonin (Melatonin 3 Mg Tablet) 6 mg PO BEDTIME PRN PRN Reason: Insomnia Morphine Sulfate (Morphine Sulfate 4 Mg/Ml Cartridge) 4 mg IVPUSH Q4H PRN; Protocol PRN Reason: Pain, Severe (Pain Scale 7-10) Last Admin: 06/25/24 07:22 Dose: 4 mg Ondansetron HCl (Ondansetron Hcl 4 Mg/2 Ml Vial) 4 mg IVPUSH Q8H PRN PRN Reason: Nausea and Vomiting Pharmacy Consult (Consult Rx Vancomycin Dosing) 1 each MISCELLANE DAILY PRN PRN Reason: Consult order Sodium Chloride (0.9 % Sodium Chloride Flush 3 Ml Syringe) 3 ml IVFLUSH QSHIFT MARK Last Admin: 06/25/24 07:24 Dose: 3 ml Allergies Allergies Allergy/AdvReac Type Severity Reaction Status Date / Time No Known Allergies Allergy Verified 06/25/24 00:04 Assessment & Plan Assessment & Plan (1) Opioid use: Status: Acute Code(s): F11.90 - Opioid use, unspecified, uncomplicated Assessment and Plan: * denies any withdrawal sx currently --denies any development of tolerance * Patient declines intervention, MOUD, or appt for tx realted to OUD at this time * Take home narcan at discharge * Encouraged patient to inform RN if sx develop or if he wishes to be seen by [facility] again during this admission * Please reconsult if needed or if patient requests to be seen Total time managing care of this patient today __35__ minutes. [facility] Past Medical History Medical History Polysubstance use disorder Social History Social History Alcohol intake: current Alcohol intake frequency: holidays/special occasions only Smoked in Last 30 Days: Yes Use of substances other than those prescribed or required for medical reasons: No Advance Directives: No Advance Directives Information Provided: Yes Do you have a plan to hurt others: No Plan service: No
--- NOTE | 2024-06-25 10:51 | MHC.CM.PN ---
Pt. lives alone, he does not have a PCP, and he did not want info on providers. He said that he has submitted an application for [facility] and is waiting for a response. He does not have home health services, or DME. He will need assistance with transport home at [place]. DCP: home, self care. CM to follow for DC needs.
--- NOTE | 2024-06-25 11:12 | PC.NURSE ---
Pt medicated for 8/10 pain, another cool pack provided, which appears to help with pain management.
--- NOTE | 2024-06-25 12:02 | PC.NURSE ---
Pt off unit to MRI at this time
--- NOTE | 2024-06-25 12:58 | P.PNIM_ITS ---
Subjective Subjective Date of Service: 06/25/24 Interval History: wrist pain Physical Exam 2 Vital Signs: Vital Signs: Last Vital Signs Temp 98.6 F 06/25/24 08:28 Pulse 72 06/25/24 08:10 Resp 16 06/25/24 08:10 BP 108/62 06/25/24 08:10 Pulse Ox 99 06/25/24 08:10 O2 Del Method Room Air 06/25/24 08:10 BMI result Body Mass Index 25.7 Extrem: Other: Patient is alert, oriented, and in no acute distress. Neuro: Normal sensation of the tips of all digits of the right hand at this time Vascular: Cap refill brisk Pain: Significant tenderness to palpation about the entire right wrist Very significant pain with axial loading of the right wrist ROM: Patient is able to get close to making a closed fist with the right hand All range of motion of the right wrist extremely painful Skin: No lacerations or abrasions. General: There is significant edema over the 1st dorsal compartment and anatomical snuffbox of the right wrist No ecchymosis, erythema, or other evidence of infection. Psych: Appears grossly normal Affect normal Attitude cooperative Objective Data Active Medications Acetaminophen (Acetaminophen 325 Mg Tablet) 650 mg PO Q6H PRN PRN Reason: Pain, Mild 1-3,fever,headache Calcium Carbonate (Calcium Carbonate 750 Mg Tab.Chew) 750 mg PO Q4H PRN PRN Reason: Heartburn Hydromorphone HCl (Hydromorphone Hcl 1 Mg/Ml Syringe) 1 mg IVPUSH Q3H PRN; Protocol PRN Reason: Breakthrough Pain Last Admin: 06/25/24 11:09 Dose: 1 mg Documented By: ABHI Vancomycin HCl 1,250 mg/ (Sodium Chloride) 250 mls @ 166.667 mls/hr IV Q12H MARK Magnesium Hydroxide (Milk Of Magnesia 30 Ml Oral.Susp) 30 ml PO DAILY PRN PRN Reason: Constipation Melatonin (Melatonin 3 Mg Tablet) 6 mg PO BEDTIME PRN PRN Reason: Insomnia Morphine Sulfate (Morphine Sulfate 4 Mg/Ml Cartridge) 4 mg IVPUSH Q4H PRN; Protocol PRN Reason: Pain, Severe (Pain Scale 7-10) Last Admin: 06/25/24 07:22 Dose: 4 mg Documented By: ABHI Ondansetron HCl (Ondansetron Hcl 4 Mg/2 Ml Vial) 4 mg IVPUSH Q8H PRN PRN Reason: Nausea and Vomiting Pharmacy Consult (Consult Rx Vancomycin Dosing) 1 each MISCELLANE DAILY PRN PRN Reason: Consult order Sodium Chloride (0.9 % Sodium Chloride Flush 3 Ml Syringe) 3 ml IVFLUSH QSHIFT [facility] Last Admin: 06/25/24 07:24 Dose: 3 ml Documented By: ABHI Labs 06/25/24 00:56 06/25/24 03:02 Labs: Laboratory Results - last 24 hr 06/25/24 06/25/24 06/25/24 00:56 03:01 03:02 MCV 88.0 MCH 31.2 MCHC 35.4 RDW 12.6 Plt Count 282 MPV 9.7 Immature Gran % (Auto) 0.3 Neut % (Auto) 75.4 H Lymph % (Auto) 13.5 L [place] % (Auto) 10.5 Eos % (Auto) 0.1 Baso % (Auto) 0.2 Lymph # (Auto) 1.8 [place] # (Auto) 1.4 H Eos # (Auto) 0.0 Baso # (Auto) 0.0 Abs Immat Gran (auto) 0.04 H Absolute Neuts (auto) 10.3 H Absolute Nucleated RBC 0.000 Nucleated RBC % (auto) 0.0 Smear Tech's Comments VERIFIED ESR 17 H Anion Gap 16 Estim Creat Clear Calc 153.3 Estimated GFR > 60 Random Glucose 102 Lactic Acid 1.4 Uric Acid 6.1 Calcium 9.5 Magnesium 1.8 Total Bilirubin 0.7 Direct Bilirubin 0.3 AST 37 ALT 32 Alkaline Phosphatase 78 Total Creatine Kinase 136 C-Reactive Protein 1.12 H Total Protein 8.1 H Albumin 4.6 Procalcitonin 0.05 Urine Color Dark Yellow Urine Appearance Clear Urine pH 5.5 Ur Specific [place] 1.025 Urine Protein Negative Urine Glucose (UA) Negative Urine Ketones 15 Urine Blood Negative Urine Nitrite Negative Ur Leukocyte Esterase Negative Urine Opiates Screen POSITIVE H Ur Buprenorphine Scrn Not Detected Ur Oxycodone Screen Positive H Urine Methadone Screen Not Detected Urine Fentanyl Screen POSITIVE H Ur Barbiturates Screen Not Detected Ur Phencyclidine Scrn Not Detected Ur Amphetamines Screen Not Detected U Benzodiazepines Scrn Not Detected Urine Cocaine Screen Not Detected U Marijuana (THC) Screen Not Detected Assessment and Plan (1) Polysubstance use disorder: Status: Acute Plan 48M PMH IVDA presented with right wrist pain Avascular necrosis is scaphoid associated with cellulitis and possible septic arthritis/osteomyelitis Continue vancomycin IV, follow up cultures and MRI, NPO after midnight for possible orthopedic intervention Polysubstance dependence Addiction appreciated, patient not interested and opiate replacement therapy DVT prophylaxis - mechanical due to possible surgery Full code reason for continued hospitalization: Awaiting cultures, IV antibiotics Quality Stroke Does the patient have a stroke diagnosis?: No VTE Prior VTE?: No VTE Risk Level:: Medical - low VTE Device Contraindication: Treatment Not Indicated VTE Drug Contraindication: Treatment Not Indicated
--- NOTE | 2024-06-25 13:15 | PC.NURSE ---
Pt unable to tolerate MRI d/t pain Dr Esquivel aware
--- NOTE | 2024-06-25 14:22 | PC.NURSE ---
Pt to be transferred to floor, Gave Dilaudid 1 mg PRN prior to transport, ?phlebitis starting to IV site with some sensitivity, primary Rn on floor made awarew in tiger, pt is difficult stick and IV is U/S guided
[2024-06-25] MEDS: vancomycin HCL 1,250 MG in 0.9 % Sodium Chloride 250 ML 166.67 MG IV (17:52)
[2024-06-25] MEDS: Melatonin 3 MG TABLET 6 MG PO (21:47)
[2024-06-25] MEDS: Morphine Sulfate Immed Release 15 MG TABLET PO (22:56)
[2024-06-26] VITALS (8 sets, daily range): BP systolic 110–132; BP diastolic 62–77; PULSE 50–54; RESP 14–20; TEMP 36.7–37.6; O2SAT 95–98
[2024-06-26] MEDS: diazePAM 10 MG/2 ML CARTRIDGE 5 MG IVPUSH ×2 (00:36→15:12)
[2024-06-26] MEDS: HYDROmorphone HCl 1 MG/ML SYRINGE IVPUSH ×7 (00:36→21:30)
[2024-06-26] MEDS: Morphine Sulfate 4 MG/ML CARTRIDGE IVPUSH ×3 (02:59→17:39)
[2024-06-26] MEDS: vancomycin HCL 1,250 MG in 0.9 % Sodium Chloride 250 ML 166.67 MG IV (05:40)
[2024-06-26 06:57] LABS: Anion Gap 15 (12-20); Blood Urea Nitrogen 7 mg/dL (9-16); Calcium 8.7 mg/dL (8.4-10.2); Carbon Dioxide 20 mmol/L (22-29); Chloride 105 mmol/L (96-108); Creatinine Clr Calc Pharmacy 178.8; Estimated Glomerular Filt Rate > 60; Glucose Random 103 mg/dL (60-115); Potassium 3.7 mmol/L (3.3-5.1); Sodium 136 mmol/L (135-145)
[2024-06-26 07:04] LABS: Basophils Percent Auto 0.3 % (0-2); Eosinophils Percent Auto 0.3 % (0-4); Hematocrit 32.3 % (42.0-52.0); Hemoglobin 11.3 g/dl (14.0-18.0); Imm Gran Abs Auto 0.05 X10*3/uL (0.00-0.03); Imm Gran Pct Auto 0.4 % (0.0-0.4); Lymphocytes Absolute Auto 1.9 X10*3/uL (1.2-4.9); Lymphocytes Percent Auto 16.7 % (20-40); MANUAL DIFF FLAG SCAN; Mean Corpuscular Hemoglobin 31.5 pg (27.0-33.0); Mean Platelet Volume 10.4 fL (9.4-12.4); Monocytes Absolute Auto 1.7 X10*3/uL (0.1-1.2); Monocytes Percent Auto 15.2 % (2-11); Neutrophils Absolute Auto 7.7 x10*3/uL (2.0-8.3); Neutrophils Percent Auto 67.1 % (45-73); Platelet Count 247 X10*3/uL (160-400); Red Blood Count 3.59 X10*6/uL (4.60-5.80); Red Cell Distribution Width 12.5 % (11.0-16.0); SCAN SMEAR FLAG 1; White Blood Count 11.4 X10*3/uL (4.8-10.8)
[2024-06-26 07:40] LABS: SLIDE REVIEW VERIFIED
[2024-06-26] MEDS: 0.9 % Sodium Chloride Flush 3 ML SYRINGE IVFLUSH ×3 (07:49→20:19)
--- NOTE | 2024-06-26 08:38 | P.PNIM_ITS ---
Subjective Subjective Date of Service: 06/26/24 Interval History: wrist pain Physical Exam 2 Vital Signs: Vital Signs: Last Vital Signs Temp 98.1 F 06/26/24 07:16 Pulse 54 06/26/24 07:16 Resp 16 06/26/24 07:16 BP 129/77 06/26/24 07:16 Pulse Ox 97 06/26/24 07:16 O2 Del Method Room Air 06/26/24 07:16 BMI result Body Mass Index 24.6 Extrem: Other: Patient is alert, oriented, and in no acute distress. Neuro: Normal sensation of the tips of all digits of the right hand at this time Vascular: Cap refill brisk Pain: Significant tenderness to palpation about the entire right wrist Very significant pain with axial loading of the right wrist ROM: Patient is able to get close to making a closed fist with the right hand All range of motion of the right wrist extremely painful Skin: No lacerations or abrasions. General: There is significant edema over the 1st dorsal compartment and anatomical snuffbox of the right wrist No ecchymosis, erythema, or other evidence of infection. Psych: Appears grossly normal Affect normal Attitude cooperative Objective Data Active Medications Acetaminophen (Acetaminophen 325 Mg Tablet) 650 mg PO Q6H PRN PRN Reason: Pain, Mild 1-3,fever,headache Calcium Carbonate (Calcium Carbonate 750 Mg Tab.Chew) 750 mg PO Q4H PRN PRN Reason: Heartburn Diazepam (Diazepam 10 Mg/2 Ml Cartridge) 5 mg IVPUSH Q4H PRN PRN Reason: Anxiety Last Admin: 06/26/24 00:36 Dose: 5 mg Documented By: LISA Hydromorphone HCl (Hydromorphone Hcl 1 Mg/Ml Syringe) 1 mg IVPUSH Q3H PRN; Protocol PRN Reason: Breakthrough Pain Last Admin: 06/26/24 08:29 Dose: 1 mg Documented By: BETO Comments: going down for procedure Vancomycin HCl 1,250 mg/ (Sodium Chloride) 250 mls @ 166.667 mls/hr IV Q12H [facility] Last Infusion: 06/26/24 07:10 Dose: Infused Documented By: BETO Magnesium Hydroxide (Milk Of Magnesia 30 Ml Oral.Susp) 30 ml PO DAILY PRN PRN Reason: Constipation Melatonin (Melatonin 3 Mg Tablet) 6 mg PO BEDTIME PRN PRN Reason: Insomnia Last Admin: 06/25/24 21:47 Dose: 6 mg Documented By: LISA Morphine Sulfate (Morphine Sulfate 4 Mg/Ml Cartridge) 4 mg IVPUSH Q4H PRN; Protocol PRN Reason: Pain, Severe (Pain Scale 7-10) Last Admin: 06/26/24 07:49 Dose: 4 mg Documented By: BETO Morphine Sulfate (Morphine Sulfate Immed Release 15 Mg Tablet) 15 mg PO Q4H PRN PRN Reason: Pain, Severe (Pain Scale 7-10) Last Admin: 06/25/24 22:56 Dose: 15 mg Documented By: LISA Ondansetron HCl (Ondansetron Hcl 4 Mg/2 Ml Vial) 4 mg IVPUSH Q8H PRN PRN Reason: Nausea and Vomiting Pharmacy Consult (Consult Rx Vancomycin Dosing) 1 each MISCELLANE DAILY PRN PRN Reason: Consult order Sodium Chloride (0.9 % Sodium Chloride Flush 3 Ml Syringe) 3 ml IVFLUSH [facility] Last Admin: 06/26/24 07:49 Dose: 3 ml Documented By: BETO Labs 06/26/24 06:24 06/26/24 06:24 Labs: Laboratory Results - last 24 hr 06/26/24 06:24 MCV 90.0 MCH 31.5 MCHC 35.0 RDW 12.5 Plt Count 247 MPV 10.4 Immature Gran % (Auto) 0.4 Neut % (Auto) 67.1 Lymph % (Auto) 16.7 L [place] % (Auto) 15.2 H Eos % (Auto) 0.3 Baso % (Auto) 0.3 Lymph # (Auto) 1.9 [place] # (Auto) 1.7 H Eos # (Auto) 0.0 Baso # (Auto) 0.0 Abs Immat Gran (auto) 0.05 H Absolute Neuts (auto) 7.7 Absolute Nucleated RBC 0.000 Nucleated RBC % (auto) 0.0 Smear Tech's Comments VERIFIED Anion Gap 15 Estim Creat Clear Calc 178.8 Estimated GFR > 60 Random Glucose 103 Calcium 8.7 D Microbiology Microbiology Results: Microbiology 06/25/24 03:09 Blood Culture - Preliminary Blood - Venous No growth after 24 hours. 06/25/24 03:01 Blood Culture - Preliminary Blood - Venous No growth after 24 hours. Assessment and Plan (1) Polysubstance use disorder: Status: Acute Plan 48M PMH IVDA presented with right wrist pain Avascular necrosis is scaphoid associated with cellulitis and possible septic arthritis/osteomyelitis Continue vancomycin IV, follow up cultures and MRI, ortho appreicated - plan for US, possible amniocentesis Polysubstance dependence Addiction appreciated, patient not interested and opiate replacement therapy DVT prophylaxis - mechanical due to possible intervention Full code reason for continued hospitalization: Awaiting cultures, IV antibiotics Quality Stroke Does the patient have a stroke diagnosis?: No VTE Prior VTE?: No VTE Risk Level:: Medical - low VTE Device Contraindication: Treatment Not Indicated VTE Drug Contraindication: Treatment Not Indicated
--- NOTE | 2024-06-26 09:13 | PM.PNORT ---
Subjective Subjective Date of Service: 06/26/24 Interval history: 48-year-old male admitted to the hospital for acute onset severe atraumatic right wrist pain Patient resting in bed this morning Reports pain is on managed States he was unable to tolerate MRI yesterday due to pain Physical Exam Vital Signs: Vital Signs: Last Vital Signs Temp 98.1 F 06/26/24 07:16 Pulse 54 06/26/24 07:16 Resp 16 06/26/24 07:16 BP 129/77 06/26/24 07:16 Pulse Ox 97 06/26/24 07:16 O2 Del Method Room Air 06/26/24 07:16 BMI result Body Mass Index 24.6 Procedures Date of Service Date of Service: 06/26/24 Progress Note: A&P Time Spent With Patient Time: Total time managing care of this patient today ____ minutes. Quality Stroke Does the patient have a stroke diagnosis?: No VTE Prior VTE?: No VTE Risk Level:: Medical - low VTE Device Contraindication: Treatment Not Indicated VTE Drug Contraindication: Treatment Not Indicated
--- NOTE | 2024-06-26 09:41 | PM.PNORT ---
Subjective Subjective Date of Service: 06/26/24 Principal diagnosis: Right wrist and hand pain Interval history: The patient is a 48-year-old man with an active IV drug use history. We were consulted for right wrist and hand pain. The patient says that his symptoms began 2 days ago where he woke up in the morning with no history of trauma, and no overuse history. He reports waking up in the morning 2 days ago with extreme pain in his right wrist and hand. Denies numbness and tingling. I asked him to demonstrate where his pain is and he demonstrates a broad area over the dorsal aspect of his hand wrist and distal forearm extending around of the volar aspect of his palm wrist and distal forearm. Now asked him to make a fist he was resistant to moving his fingers. Physical Exam Vital Signs: Vital Signs: Last Vital Signs Temp 98.1 F 06/26/24 07:16 Pulse 54 06/26/24 07:16 Resp 16 06/26/24 07:16 BP 129/77 06/26/24 07:16 Pulse Ox 97 06/26/24 07:16 O2 Del Method Room Air 06/26/24 07:16 BMI result Body Mass Index 24.6 Extrem: Other: The patient was alert oriented and in no acute distress. He was seen in his bed in his room. He has a small amount of swelling over the dorsal radial aspect of his right wrist but no associated erythema or warmth. No appreciable swelling in the hand or fingers. No generalized or otherwise localized swelling other than that mentioned above. No erythema no warmth. Initially he did not want to make a fist. With encouragement I was able to get him to bring his fingertips down to a weak fist and then back into extension. He was then able to do so actively with encouragement. Again no swelling in the palm, the fingers were the dorsal aspect of the hand. Small amount of swelling over the dorsal radial aspect of the wrist in the area of the radial scaphoid joint. No erythema or warmth associated with this. No focal areas of swelling, and really minimal if any generalized swelling. No open wounds. Radiographs: Three views of the right wrist taken yesterday were reviewed by me. 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 MRI of the right wrist: This was done yesterday in his very limited as the patient refused to participate in the MRI after the 1st couple of scans. I also spoke with Dr. Tafoya about this MRI. We are not seeing significant fluid in the wrist or in the soft tissues about the wrist or hand, though the studies very limited and we did not have T2 images. Ultrasound of the right wrist: This was seen by Dr. Ballard and I discussed this study with him. He said that he did not see any significant fluid collection within the wrist joint, and he did not see any fluid collection worrisome for an abscess. He said there was a small amount of fluid around the radial wrist extensors, but again this did not appear to be worrisome for an abscess. Procedures Date of Service Date of Service: 06/26/24 Progress Note: A&P Assessment and plan (1) Right wrist pain: Status: Acute Plan Assessment and plan: 1. Right hand and wrist pain Acute onset, no history of injuries Duration 2 days No clinical or radiographic evidence of abscess. The small amount of swelling over the dorsal radial aspect of the wrist is easily explained by his scaphoid nonunion. This appears to be chronic. No operative indications. I encouraged him to work on bring his fingers close to a fist and back into extension. He should be doing this several times every hour. He is having trouble doing this you could consider some OT Time Spent With Patient Time: Total time managing care of this patient today _35 minutes. Quality Stroke Does the patient have a stroke diagnosis?: No VTE Prior VTE?: No VTE Risk Level:: Medical - low VTE Device Contraindication: Treatment Not Indicated VTE Drug Contraindication: Treatment Not Indicated
[2024-06-26 15:26] LABS: Vancomycin Trough 7.2 mcg/mL (10.0-20.0)
[2024-06-26] MEDS: vancomycin HCL 1,500 MG in 0.9 % Sodium Chloride 500 ML 333.33 MG IV (17:40)
[2024-06-26] MEDS: Melatonin 3 MG TABLET 6 MG PO (19:38)
[2024-06-26] MEDS: Morphine Sulfate Immed Release 15 MG TABLET PO (19:39)
[2024-06-27 00:35] VITALS: RESP 18
[2024-06-27] MEDS: Morphine Sulfate 4 MG/ML CARTRIDGE IVPUSH ×2 (00:35→04:19)
[2024-06-27] MEDS: vancomycin HCL 1,500 MG in 0.9 % Sodium Chloride 500 ML 333.33 MG IV ×2 (00:37→07:57)
[2024-06-27 01:20] VITALS: RESP 16
[2024-06-27] MEDS: Morphine Sulfate Immed Release 15 MG TABLET PO ×2 (01:37→07:54)
[2024-06-27 02:37] VITALS: RESP 16
[2024-06-27 03:00] VITALS: BP 117/63; PULSE 56; RESP 20
--- NOTE | 2024-06-27 04:26 | PC.NURSE ---
Assumed care of this patient at 19:00. Handoff report given to RN taking over care at 03:45. Please see shift assessments, tasks in worklist, and MAR for full details.
[2024-06-27] MEDS: HYDROmorphone HCl 1 MG/ML SYRINGE IVPUSH ×2 (06:36→09:43)
[2024-06-27 07:12] VITALS: BP 133/62; PULSE 48; RESP 18; TEMP 36.3; O2SAT 96
[2024-06-27 07:41] LABS: Creatinine Clr Calc Pharmacy 181.8; Estimated Glomerular Filt Rate > 60
[2024-06-27] MEDS: diazePAM 10 MG/2 ML CARTRIDGE 5 MG IVPUSH (07:57)
[2024-06-27] MEDS: 0.9 % Sodium Chloride Flush 3 ML SYRINGE IVFLUSH (08:05)
--- NOTE | 2024-06-27 09:28 | PM.DS ---
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 Patient initially stated that he had a cut about a week ago from working on a car. Then later admitted that he injected IV heroin at the site of pain and swelling. Patient states he woke up with throbbing right wrist pain and noticed redness, swelling. The pain has been persistent and without any relieving factors. Does endorse a remote fracture of the right wrist but states that until 1 day prior to presentation he had no problems with his wrist. He is unable to move his wrist on the day of presentation due to pain and swelling. Denies fever, chills, chest pain, palpitations, abdominal pain, changes in urinary or bowel habits. In the emergency department, UDS positive for fentanyl. Leukocytosis 13.7 and imaging with avascular necrosis of scaphoid. hospital course: And was admitted for avascular necrosis of scaphoid associated with cellulitis and possible septic arthritis/osteomyelitis was treated broad-spectrum antibiotics with IV vancomycin to cover possible MRSA. Patient was unable to tolerate MRI. Was seen by Orthopedics who recommended ultrasound which did not reveal drainable fluid. Making septic arthritis and osteomyelitis unlikely and findings were likely more chronic. Recommended occupational therapy. For polysubstance dependence was seen by family specialist but was not interested in treatment. Patient will be discharged home with 5 more days of doxycycline. Time Attestation Discharge Coordination Time (in mins): 33 Quality: Safe Use of Opioids Does Pt have an Active Cancer Diagnosis on the Problem List?: No Quality: Stroke Does the patient have a stroke diagnosis?: No Physical Exam Vital Signs: Vital Signs: Last Vital Signs Temp 97.3 F 06/27/24 07:12 Pulse 48 L 06/27/24 07:12 Resp 18 06/27/24 07:12 BP 133/62 06/27/24 07:12 Pulse Ox 96 06/27/24 07:12 O2 Del Method Room Air 06/27/24 07:12 BMI result Body Mass Index 24.6 Extrem: Other: The patient was alert oriented and in no acute distress. He was seen in his bed in his room. He has a small amount of swelling over the dorsal radial aspect of his right wrist but no associated erythema or warmth. No appreciable swelling in the hand or fingers. No generalized or otherwise localized swelling other than that mentioned above. No erythema no warmth. Initially he did not want to make a fist. With encouragement I was able to get him to bring his fingertips down to a weak fist and then back into extension. He was then able to do so actively with encouragement. Again no swelling in the palm, the fingers were the dorsal aspect of the hand. Small amount of swelling over the dorsal radial aspect of the wrist in the area of the radial scaphoid joint. No erythema or warmth associated with this. No focal areas of swelling, and really minimal if any generalized swelling. No open wounds. Radiographs: Three views of the right wrist taken yesterday were reviewed by me. 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 MRI of the right wrist: This was done yesterday in his very limited as the patient refused to participate in the MRI after the 1st couple of scans. I also spoke with Dr. Tafoya about this MRI. We are not seeing significant fluid in the wrist or in the soft tissues about the wrist or hand, though the studies very limited and we did not have T2 images. Ultrasound of the right wrist: This was seen by Dr. Ballard and I discussed this study with him. He said that he did not see any significant fluid collection within the wrist joint, and he did not see any fluid collection worrisome for an abscess. He said there was a small amount of fluid around the radial wrist extensors, but again this did not appear to be worrisome for an abscess. DS: Data Data Completed and Pending Labs on day of discharge: Laboratory Results - last 24 hr 06/26/24 06/27/24 14:48 07:04 Creatinine 0.59 Estim Creat Clear Calc 181.8 Estimated GFR > 60 Vancomycin Trough 7.2 L Preliminary micro results at discharge 06/25/24 03:09 Blood Culture - Preliminary Blood - Venous No growth after 48 hours. 06/25/24 03:01 Blood Culture - Preliminary Blood - Venous No growth after 48 hours. Discharge Plan Discharge Anticipated Discharge Date/Time: 06/27/24 09:26 Patient Disposition: Home, Self-Care Discharge Diagnosis: avn wrist Referrals: Christie Mattson PA-C [Physician Network Intelligence Analyst] - 1 Week Physician,None [Primary Care Provider] - 1 Week Discharge Medications: New doxycycline hyclate 100 mg tablet 100 mg PO BID Qty: 10 0RF Discharge Orders: Discharge Order (Routine); Ordered 06/27/24 Ordered By: Chacho Esquivel Diet: Advance to usual diet Activity on Discharge: As tolerated Stand Alone Forms: Patient Portal Discharge page Print Language: Faroese Care Plan Goals: recovery Health Concerns: avn of scaphoid, ivda Plan of Treatment: do not use drugs, follow up with ortho 5 days of doxy Assessment: see above
--- NOTE | 2024-06-27 09:39 | MHC.CM.PN ---
PT DCD HOME SELF CARE PRIOR TO BEING SEEN BY CM
--- NOTE | 2024-06-27 09:40 | MHC.CM.PN ---
PT DCD HOME SELF CARE
== END 2024-06-27 10:34 | disposition home or self-care (01) | DRG 351 ==
LOC: HO.ED 06-25 05:16 → HO.EDOVER 06-25 06:11 → HO.S3 06-25 13:30
PROVIDERS: Admitting Provider Student in an Organized Health Care Education/Training Program; Emergency Provider Emergency Medicine; Visit Provider Internal Medicine
DX: M87.037 Idiopathic aseptic necrosis of right carpus (principal); F17.210 Nicotine dependence, cigarettes, uncomplicated; F19.20 Other psychoactive substance dependence, uncomplicated; Z71.6 Tobacco abuse counseling
CPT/HCPCS: 36415; 73100; 73120; 73201; 73221; 76881; 80048; 80076; 80202; 80307; 81003; 82550; 82565; 83605; 83735; 84145; 84550; 85025; 85652; 86140; 87040; 93005; 97165; 99285; J1171; J1885; J2270; J2543; J3360; J3370; J3371; J7120; Q9967

== ENCOUNTER → 2024-06-25 00:18 | Outpatient (BNV) | payer MEDICAID, SELFPAY | PROVIDERS: Visit Provider Radiology Diagnostic Radiology | DX: S62.034K Nondisplaced fracture of proximal third of navicular [scaphoid] bone of right wrist, subsequent encounter for fracture with nonunion (principal); M25.531 Pain in right wrist | CPT/HCPCS: 73100; 73120; 73201 ==

== ENCOUNTER → 2024-06-25 01:52 | Outpatient (BNV) | payer MEDICAID, SELFPAY | PROVIDERS: Admitting Provider Student in an Organized Health Care Education/Training Program; Emergency Provider Emergency Medicine; Visit Provider Internal Medicine | DX: R07.9 Chest pain, unspecified (principal) | CPT/HCPCS: 93010 ==

== ENCOUNTER 2024-06-25 04:33 | Outpatient (BNV) | payer MEDICAID, SELFPAY | END 2024-06-26 07:56 | PROVIDERS: Admitting Provider Student in an Organized Health Care Education/Training Program; Emergency Provider Emergency Medicine; Visit Provider Radiology Diagnostic Radiology | DX: M25.531 Pain in right wrist (principal) | CPT/HCPCS: 76881 ==

== ENCOUNTER → 2024-06-25 04:33 | Outpatient (BNV) | payer MEDICAID, SELFPAY | PROVIDERS: Admitting Provider Student in an Organized Health Care Education/Training Program; Emergency Provider Emergency Medicine | DX: M87.039 Idiopathic aseptic necrosis of unspecified carpus (principal); F19.90 Other psychoactive substance use, unspecified, uncomplicated | CPT/HCPCS: 99222 ==

== ENCOUNTER → 2024-06-25 04:33 | Outpatient (BNV) | payer OTHER, SELFPAY | PROVIDERS: Admitting Provider Student in an Organized Health Care Education/Training Program; Emergency Provider Emergency Medicine; Visit Provider Nurse Practitioner Psychiatric/Mental Health | DX: F11.90 Opioid use, unspecified, uncomplicated (principal) | CPT/HCPCS: 99499 ==

== ENCOUNTER → 2024-06-25 04:33 | Outpatient (BNV) | payer MEDICAID, SELFPAY | PROVIDERS: Admitting Provider Student in an Organized Health Care Education/Training Program; Emergency Provider Emergency Medicine; Visit Provider Student in an Organized Health Care Education/Training Program | DX: M87.039 Idiopathic aseptic necrosis of unspecified carpus (principal); F19.90 Other psychoactive substance use, unspecified, uncomplicated | CPT/HCPCS: 99222; 99232; 99239; 99499 ==